=== PATIENT | female | born 1965 | race Caucasian/White ===

== ENCOUNTER → 2017-04-05 | Outpatient (CLI) | payer OTHER | LOC: BMCIMAGING 12:46 | PROVIDERS: ATTEND Physician Assistant | DX: Z13.6 Encounter for screening for cardiovascular disorders (principal); R42 Dizziness and giddiness; Z82.49 Family history of ischemic heart disease and other diseases of the circulatory system ==

== ENCOUNTER → 2018-08-06 | Outpatient (CLI) | payer OTHER | LOC: FIMAGING 15:31 ==